=== PATIENT | female | born 1980 | race Caucasian/White ===

== ENCOUNTER → 2017-02-02 | Outpatient (CLI) | payer OTHER | LOC: FIMAGING 13:35 | PROVIDERS: ATTEND Obstetrics & Gynecology | DX: O43.122 Velamentous insertion of umbilical cord, second trimester (principal); O31.22X0 Continuing pregnancy after intrauterine death of one fetus or more, second trimester, not applicable or unspecified; Z3A.18 18 weeks gestation of pregnancy ==

== ENCOUNTER → 2017-03-02 | Outpatient (CLI) | payer OTHER | LOC: FIMAGING 14:26 | PROVIDERS: ATTEND Obstetrics & Gynecology | DX: O43.122 Velamentous insertion of umbilical cord, second trimester (principal); O09.892 Supervision of other high risk pregnancies, second trimester; Z3A.22 22 weeks gestation of pregnancy ==

== ENCOUNTER 2017-03-03 23:04 | Emergency (ER) | payer OTHER ==
[2017-03-03 23:10] VITALS: BP 114/69; PULSE 77; RESP 16; TEMP 97.9; O2SAT 97
--- NOTE | 2017-03-03 23:11 | EDPHY ---
H & P Stated Complaint: bilat ear pain HPI/ROS: HPI CHIEF COMPLAINT: Sore throat, ear pain, 22 weeks HISTORY OF PRESENT ILLNESS: This patient very pleasant 36-year-old female no significant medical history does not take any daily medications she is 22 weeks , she presents emergency room with sore throat since Monday, and now has left ear pain. She states her ears feel clogged she went to pop both of her ears and developed ear pain of her left ear. Continues to have sore throat. T- max fever at home on Monday. Since then no fever. Denies chest pain or shortness of breath. Denies abdominal pain or abdominal cramping vaginal bleeding or urinary symptoms. Past Medical History: No significant medical history Past Surgical History: Multiple orthopedic surgeries including rest, knee, ACL repair right Social History: Denies daily use of drugs alcohol tobacco products Family History: Noncontributory ROS REVIEW OF SYSTEMS: A comprehensive 10 point review of systems is otherwise negative aside from elements mentioned in the history of present illness. Exam Constitutional triage nursing summary reviewed, vital signs reviewed, awake/ alert. Eyes normal conjunctivae and sclera, EOMI, PERRLA. HENT left TM erythematous and bulging, right TM normal, posterior pharynx mild erythema no significant swelling, uvula midline, no exudate Respiratory clear to auscultation bilaterally, normal breath sounds, no respiratory distress, no wheezing. Cardiovascular rate normal, regular rhythm, no murmur, no edema, distal pulses normal. Gastrointestinal soft, non-tender, no rebound, no guarding, normal bowel sounds, no distension, no pulsatile mass. Genitourinary no CVA tenderness. Musculoskeletal no midline vertebral tenderness, full range of motion, no calf swelling, no tenderness of extremities, no meningismus, good pulses, neurovascularly intact. Skin pink, warm, & dry, no rash, skin atraumatic. Neurologic awake, alert and oriented x 3, AAOx3, moves all 4 extremities equally, motor intact, sensory intact, CN II-XII intact, normal cerebellar, normal vision, normal speech. Psychiatric normal mood/affect. Heme/Lymph/Immune no lymphadenopathy. Differential Diagnosis: Includes but is not limited to in a particular order, viral pharyngitis, strep pharyngitis, bacterial pharyngitis, otitis media, viral syndrome, sinusitis Medical Decision Making: Plan for this patient rapid strep. Left TM is erythematous with bulging. Most likely treat for acute otitis media. She is penicillin allergic. Re-evaluation: 2340: Rapid strep pending at this time. I have ordered her dose of azithromycin here in the emergency room. Z-Karson for home. Understands return emergency room if there is worsening symptoms includes high fever, worsening pain questions or concerns. Also follow up with OBGYN. Source: Patient - Personal History LMP (Females 10-55): EDC: 07/02/17 Current Tetanus/Diphtheria Vaccine: Yes - Medical/Surgical History Hx Asthma: No Hx Chronic Respiratory Disease: No Hx Diabetes: No Hx Cardiac Disease: No Hx Renal Disease: No Hx Cirrhosis: No Hx Alcoholism: No Hx HIV/AIDS: No Hx Splenectomy or Spleen Trauma: No Other PMH: PSHx: ortho hx- tailbone, r acl,4 r arm breaks, l wrist clavical, l shoulder sugery. PMHx: denies - Social History Smoking Status: Never smoked Constitutional: Initial Vital Signs Temperature (C) 36.6 C 03/03/17 23:06 Heart Rate 77 03/03/17 23:06 Respiratory Rate 16 03/03/17 23:06 Blood Pressure 114/69 03/03/17 23:06 O2 Sat (%) 97 03/03/17 23:06 O2 Delivery Mode Room Air Allergies/Adverse Reactions: penicillin G Allergy (Verified 10/14/15 08:13) Home Medications: Medication Instructions Recorded Vit27&Calcium/Iron/FA 1 tab PO DAILY 10/14/15 [] AZITHROMYCIN [Z-PACK] 250 mg PO DAILY #6 tab 03/03/17 Medical Decision Making - Data Points Laboratory Results: 03/03/17 23:25 Group A Strep Screen Pending Departure - Departure Disposition: Home, Routine, Self-Care Clinical Impression: Ear pain, left Pharyngitis Qualifiers: Pharyngitis/tonsillitis etiology: unspecified etiology Qualified Code(s): J02.9 - Acute pharyngitis, unspecified Otitis media Qualifiers: Otitis media type: unspecified Laterality: left Chronicity: unspecified Qualified Code(s): H66.92 - Otitis media, unspecified, left ear Condition: Good Instructions: Pharyngitis (ED), Otitis Media (ED), Earache (ED) Additional Instructions: 1. Please return emergency room if you have any worsening symptoms questions or concerns. This includes high fever, vomiting. Referrals: Anna Marie Canchola MD [Primary Care Provider] - As per Instructions Prescriptions: AZITHROMYCIN [Z-PACK] 250 mg PO DAILY #6 tab
[2017-03-03] MEDS ORDERED: AZITHROMYCIN 250 MG TAB PO ONE (23:39)
== END 2017-03-04 | disposition home or self-care (01) ==
DX: O99.512 Diseases of the respiratory system complicating pregnancy, second trimester (principal); J02.9 Acute pharyngitis, unspecified; H66.92 Otitis media, unspecified, left ear; O99.89 Other specified diseases and conditions complicating pregnancy, childbirth and the puerperium; Z3A.22 22 weeks gestation of pregnancy

== ENCOUNTER → 2017-03-30 | Outpatient (CLI) | payer OTHER | LOC: FIMAGING 14:20 | PROVIDERS: ATTEND Obstetrics & Gynecology | DX: O43.122 Velamentous insertion of umbilical cord, second trimester (principal); Z3A.26 26 weeks gestation of pregnancy ==

== ENCOUNTER → 2017-05-02 | Outpatient (CLI) | payer OTHER | LOC: FIMAGING 14:38 | PROVIDERS: ATTEND Obstetrics & Gynecology | DX: O09.523 Supervision of elderly multigravida, third trimester (principal); O43.123 Velamentous insertion of umbilical cord, third trimester; O34.219 Maternal care for unspecified type scar from previous cesarean delivery; Z3A.31 31 weeks gestation of pregnancy ==

== ENCOUNTER → 2017-06-05 | Outpatient (CLI) | payer OTHER | LOC: FIMAGING 14:41 | PROVIDERS: ATTEND Obstetrics & Gynecology | DX: O09.523 Supervision of elderly multigravida, third trimester (principal); O43.123 Velamentous insertion of umbilical cord, third trimester; Z3A.36 36 weeks gestation of pregnancy ==

== ENCOUNTER 2017-06-20 05:41 | Inpatient (IN) | payer OTHER ==
--- NOTE | 2017-06-13 18:44 | GHP ---
[f rep st] PREOP HISTORY AND PHYSICAL DATE OF ADMISSION: 06/20/2017 PLANNED PROCEDURE: Repeat low-transverse section. INDICATIONS: History of previous low transverse section and velamentous cord insertion with vessels inserting low into the cervix. Recommended be delivered at 38 weeks by Maternal [facility]. HISTORY OF PRESENT ILLNESS: The patient is a 37-year-old, 2, para 1-0-0 -1, who had her first baby at [facility], and had a primary low transverse section for arrest of dilation and descent. The baby was found to be macrosomic. The patient initiated care with [facility] with this , but had transferred to our office at 34 weeks gestation. This has been complicated by a vanishing twin in the first trimester, and a velamentous cord insertion with the vessels near the cervix. Recommendation has been made the patient have a repeat low transverse section, and so the patient will be scheduled for that. Recommendation also is made that this be done between 37 and 38 weeks. has been otherwise uncomplicated. PAST MEDICAL HISTORY: Unremarkable. MEDICATIONS: vitamins and DHA. PAST SURGICAL HISTORY: Primary low-transverse section, left wrist surgery, left knee surgery, right ACL meniscus repair, left shoulder ligament repair, right arm closed reduction, bilateral hernia repair. ALLERGIES: Penicillin, which causes a rash. SOCIAL HISTORY: The patient is . She lives with her . She denies tobacco, alcohol, or drug use. FAMILY MEDICAL HISTORY: Noncontributory. 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 Periods are every 28 days, lasting 5 days. She is a 2, para 1-0-0-1. In 09/2015, she had a primary low transverse section at 40 weeks and 6 days, of a 9 pounds 10 ounce male . C- section was done for arrest of descent and dilation. Current has been complicated by first-trimester bleeding, which was thought to be associated with a vanishing twin. She also has been monitored for growth during the because of a velamentous cord insertion into the inter- twin membrane located in the right lower uterine segment the of the cervix. The patient denies history of any abnormal Pap smears or sexually transmitted diseases. REVIEW OF SYSTEMS: A 10-point review of systems is negative. She does have good movement. Denies any loss of fluid or vaginal bleeding. She denies any headache or changes in vision. PHYSICAL EXAM: VITAL SIGNS: Stable. GENERAL APPEARANCE: Alert and oriented x3. PSYCH: She has appropriate affect. NECK: Mobile and supple. HEART: Rate is regular, regular. LUNGS: Clear to auscultation bilaterally. ABDOMEN: Gravid, nondistended, nontender. EXTREMITIES: Reveal no calf tenderness or edema. PELVIC: Deferred. is in the vertex presentation. LABORATORY DATA: LABS: Blood type O positive. Antibody screen negative. Rubella immune. GBS negative. HBsAg negative. HIV negative. She had an early first trimester 50 g glucose, which was 142, and a normal 3-hour glucose tolerance test in the second at 28 weeks. She just did a third 3-hour glucose tolerance test fasting, was 83; 1-hour was 166; 2-hour was 129, and 3- hour was 98. ASSESSMENT AND PLAN: A 37-year-old 2, para 1-0-0-1, who will be 38 weeks gestation, and presents for a repeat low transverse section. The patient's family status is complete, but she is not ready to have a tubal ligation, and will have an IUD placed at her visit. /[id number]/MODL MTDD
[2017-06-20] MEDS ORDERED: LR 500 ML IV ONE ×2 (05:57→07:53)
[2017-06-20] MEDS ORDERED: CITRIC ACID/SODIUM CITRATE 30 ML UDCUP PO ONE ×2 (05:57→07:53)
[2017-06-20] MEDS ORDERED: LR 1,000 ML IV SCH ×2 (06:00→08:00)
[2017-06-20 06:18] LABS: % IMMATURE GRANULYOCYTES 1.3 % (0.0-1.1); ABSOLUTE IMMATURE GRANULOCYTES 0.11 10^3/uL (0.00-0.10); ADD DIFF? NO; ADD MORPH? NO; ADD SCAN? NO; ATYPICAL LYMPHOCYTE FLAG 10 (0-99); FRAGMENT RBC FLAG 0 (0-99); HEMOGLOBIN 13.1 g/dL (12.6-16.3); LEFT SHIFT FLG 10 (0-99); LIPEMIA HEMOLYSIS FLAG 90 (0-99); MEAN CELL HEMOGLOBIN 31.2 pg (27.9-34.1); MEAN CELL HEMOGLOBIN CONCENTR. 34.5 g/dL (32.4-36.7); MEAN CELL VOLUME 90.5 fL (81.5-99.8); PLATELET CLUMPS FLAG 0 (0-99); PLATELET COUNT 194 10^3/uL (150-400)
[2017-06-20] MEDS ORDERED: OLIVE OIL 118 ML BTL ONE (06:32)
[2017-06-20] MEDS ORDERED: AMMONIA AROMATIC 1 EACH AMP IH ONE (06:32)
[2017-06-20] MEDS ORDERED: MISOPROSTOL 200 MCG TAB ONE (06:33)
[2017-06-20] MEDS ORDERED: ceFAZolin 2 GM/DEXTROSE 100 ML IV ONE (07:53)
[2017-06-20] MEDS ORDERED: CEFAZOLIN 2 GM/DEXTROSE/100 ML BAG IV ONE (07:57)
--- NOTE | 2017-06-20 07:59 | PREANESOB ---
Obstetric Pre-Anesthesia Info - General Info Proposed Procedure: repeat : 2 Para: 2 - Info Status: Full Term (38 weeks), Guevara Monitors: External FHR Pattern: Reassuring - Labor Status Cervical Dilation per last OB SVE: 0 (n/a) Section History: Repeat Indications for Current Section: Other (Specify) (velamentous cord) Labor Epidural: No Anesthesia Allergies/Adverse Reactions: Allergy/AdvReac Type Severity Reaction Status Date / Time penicillin G Allergy Verified 10/14/15 08:13 Home Medications: Medication Instructions Recorded Vit27&Calcium/Iron/FA 1 tab PO DAILY 10/14/15 [] Visit Medications: Generic Name Dose Route Start Last Admin Trade Name Freq PRN Reason Stop Dose Admin Lactated Ringer's 1,000 mls @ 125 mls/hr 06/20/17 06:00 Lr IV 12/17/17 05:59 CONT STAN Discontinued Medications Generic Name Dose Route Start Last Admin Trade Name Freq PRN Reason Stop Dose Admin Ammonia (Aromatic Spirit) Confirm 06/20/17 06:32 Ammonia Aromatic Administered 06/20/17 06:33 Dose 1 each IH .STK-MED ONE Citric Acid/Sodium Citrate 30 ml 06/20/17 05:57 06/20/17 07:21 Bicitra PO 06/20/17 05:58 30 ml ONCALL ONE Administration Ephedrine Sulfate Confirm 06/20/17 06:32 Ephedrine Sulfate Administered 06/20/17 06:33 Dose 50 mg .ROUTE .STK-MED ONE Lactated Ringer's 500 mls @ 0 mls/hr 06/20/17 05:57 Lr IV 06/20/17 05:58 ONCE ONE As Directed Misoprostol Confirm 06/20/17 06:33 Cytotec Administered 06/20/17 06:34 Dose 1,000 mcg .ROUTE .STK-MED ONE Morphine Sulfate Confirm 06/20/17 07:51 Morphine Administered 06/20/17 07:52 Dose 2 mg .ROUTE .STK-MED ONE Concord Oil Confirm 06/20/17 06:32 Sweet Oil Administered 06/20/17 06:33 Dose 118 ml .ROUTE .STK-MED ONE - Anesthesia History Response to Local Anesthetics: Not Applicable Anesthesia & Operative History: Prob w/Prior Anesthesia (n/v) Family Anesthesia History: Not Applicable - Social History Substance Use/Abuse: Denies - Focused Exam Blood Pressure: 98/56 Heart Rate: 63 Respiratory Rate: 12 Height/Weight (Nursing): Height 167.64 cm Weight 87.997 kg Respiratory: chest non-tender, lungs clear Cardiovascular: normal peripheral pulses, regular rate, rhythm Labs: 06/20/17 05:50 Patient ABO/Rh O POSITIVE 06/20/17 06:10 - Plan Anesthetic Plan: sab with morphine Consent Signed and on Chart: Yes Patient/Guardian Understands and Agrees to Plan: Yes
[2017-06-20] MEDS ORDERED: PHENYLEPHRINE HCL 100 MCG/ML SYR ONE ×2 (08:01→08:50)
[2017-06-20] MEDS ORDERED: DEXAMETHASONE 4 MG/ML VIAL ONE (08:01)
[2017-06-20] MEDS ORDERED: ONDANSETRON 4 MG/2 ML VIAL ONE (08:01)
[2017-06-20] MEDS ORDERED: fentaNYL 100 MCG/2 ML INJ ONE (08:01)
[2017-06-20] MEDS ORDERED: OXYTOCIN 100 UNITS/10 ML VIAL ONE (08:02)
[2017-06-20] MEDS ORDERED: LABETALOL HCL 5 MG/ML 20 ML MDV IVP PRN (08:41)
[2017-06-20] MEDS ORDERED: ONDANSETRON 4 MG/2 ML VIAL IVP PRN (08:41)
[2017-06-20] MEDS ORDERED: NALOXONE HCL 0.4 MG/ML INJ IVP PRN (08:41)
[2017-06-20] MEDS ORDERED: HYDROCODONE/APAP 5/325 TAB PO PRN ×2 (08:41→10:02)
[2017-06-20] MEDS ORDERED: MEPERIDINE 25 MG/ML SYR IVP PRN (08:41)
[2017-06-20] MEDS ORDERED: fentaNYL 100 MCG/2 ML INJ IVP PRN (08:41)
[2017-06-20] MEDS ORDERED: METOCLOPRAMIDE 10 MG/2 ML VIAL IVP PRN (08:41)
[2017-06-20] MEDS ORDERED: PHENYLEPHRINE HCL 100 MCG/ML SYR IVP PRN (08:41)
--- NOTE | 2017-06-20 09:38 | POSTANESTH ---
Post Anesthetic Evaluation Cardiovascular Status: Normal, Stable Respiratory Status: Normal, Stable Level of Consciousness/Mental Status: Can Participate in Eval Pain Control: Adequate, Prn Tx Ordered Nausea/Vomiting Control: Adequate, Prn Tx Ordered Complications Possibly Related to Anesthesia: None Noted
[2017-06-20] MEDS ORDERED: DOCUSATE SODIUM 100 MG CAP PO PRN (10:02)
[2017-06-20] MEDS ORDERED: SIMETHICONE 80 MG TAB CHEW PO PRN (10:02)
[2017-06-20] MEDS ORDERED: LACTULOSE 20 GM/30 ML UDCUP PO PRN (10:02)
[2017-06-20] MEDS ORDERED: MAGNESIUM HYDROXIDE 30 ML UDCUP PO PRN (10:02)
[2017-06-20] MEDS ORDERED: POLYETHYLENE GLYCOL 3350 17 GM PKT PO PRN (10:02)
[2017-06-20] MEDS ORDERED: BISACODYL 10 MG SUPP PR PRN (10:02)
--- NOTE | 2017-06-20 10:16 | OBDEL ---
Info Type: Repeat Presentation at Delivery: Vertex L&D Analgesia/Anesthesia Type: Spinal GBS+: No (was positive- given ancef due to c section ) Intrapartum Medications: Discontinued Medications Generic Name Dose Route Start Last Admin Trade Name Chandler PRN Reason Stop Dose Admin Citric Acid/Sodium Citrate 30 ml 06/20/17 05:57 06/20/17 07:21 Bicitra PO 06/20/17 05:58 30 ml ONCALL ONE Administration Cefazolin Sodium/Dextrose 100 mls @ 200 mls/hr 06/20/17 07:53 06/20/17 08:05 Ancef 2 Gm (Premix) IV 06/20/17 08:22 100 mls ONCALL ONE Administration Protocol - Hospital Course Intrapartum: 06/20/17 10:1 uncomplicated c section Operative Report - Delivery Pre-op Diagnoses: IUP 38 2/7 weeks, hx prior c section for arrest of descent and dilation, velamentous cord (mfm rec delivery 38-39 weeks) Post-op Diagnoses: same History of Prior Section: Yes Number of Prior Sections: 1 Nulliparous Prior to Delivery: No Indications for Prior Section: Arrest of Descent, Arrest of Dilation ( baby was 9#10 oz) Indications for Current Section: Other (Specify) (velamentous cord) Surgeon: Emma Meade Manager Code: Ro Yarbrough Anesthesiologist: Basilio Polanco Findings: velementous cord insertion with essels traversing along lateral edge of placenta EBL: 800 Data Guevara Delivery Date: 06/20/17 Delivery Time: 08:45 CINDY: 07/02/17 Gestational Age: 38 week(s) and 2 day(s) Sex of : Female Score (1 Min): 8 Score (5 Min): 9 ICD10 Worksheet Patient Problems: Problems Problem Status Onset Elective induction of labor planned Acute
[2017-06-20] MEDS ORDERED: OXYTOCIN/RINGERS LACTATE 1,000 ML IV SCH (10:30)
[2017-06-20] MEDS ORDERED: KETOROLAC 30 MG/1 ML SDV ONE (10:58)
[2017-06-20] MEDS: KETOROLAC 30 MG/1 ML SDV IVP SCH ×3 (11:01→22:19)
--- NOTE | 2017-06-20 11:12 | GOP ---
[f rep st] OPERATIVE REPORT DATE OF OPERATION: 06/20/2017 SURGEON: Emma Meade DO DUCT LAYER: PAVAN Avila, the certified nurse skein yarn drier. PREOPERATIVE DIAGNOSIS: 1. Intrauterine at 38-2/7 weeks' gestation. 2. History of previous section for 9 pounds, 10 ounces baby, arrest of descent and dilatio n. 3. Velamentous cord insertion, recommended delivery between 38 and 39 weeks per MFM. POSTOPERATIVE DIAGNOSIS: 1. Intrauterine at 38-2/7 weeks' gestation. 2. History of previous section for 9 pounds, 10 ounces baby, arrest of descent and dilatio n. 3. Velamentous cord insertion, recommended delivery between 38 and 39 weeks per MFM. 4. Straight occiput posterior. PROCEDURE PERFORMED: Repeat low transverse section with excision of scar. FINDINGS: 1. Viable female infant in the cephalic occiput posterior presentation delivered at 8:45 a.m. Apga rs were 8 and 9. 2. Intact placenta with 3-vessel cord with velamentous cord insertion and cord running around the p eriphery of the placenta. Normal ovaries, uterus, and tubes. ESTIMATED BLOOD LOSS: 800 cc. INDICATIONS: The patient is a 37-year-old, 2, para 1-0-0-1, who is 38-2/7 weeks' gestation. She initially had care starting in the first trimester with [facility], but t ransferred to us at 34 weeks' gestation. She does have a history of a previous low transverse tony ravin section for arrest of descent and dilation for 9 pounds, 10 ounces baby. She had hoped to have vaginal after section, but was diagnosed with a velamentous cord insertion with the v essels near the cervix. The recommendation was that the patient have a repeat low transverse tariq an section. Risks and benefits were reviewed with the patient, and the patient was properly consent ed. DESCRIPTION OF PROCEDURE: The patient was taken to the operating room with intravenous fluids in pl oralia. She was given 2 g of Ancef intravenously. She was then seated on the operating room table whe re spinal anesthesia was obtained. She was then repositioned into the dorsal supine position with a leftward tilt and prepped and draped in the normal sterile fashion. A Matthews catheter was placed pr ior to prepping and draping, and Venodynes were placed on her lower extremities. Anesthesia was ass essed and found to be adequate. A Pfannenstiel skin incision was then made 2 fingerbreadths above t he pubic symphysis. The incision was then carried through the underlying layer of fascia with the B ovie. The fascia was then nicked in the midline. The fascial incision was extended laterally. The superior aspect of the fascial incision was grasped with a Kaleigh, tented up, and the underlying re ctus muscle dissected off bluntly with the Bovie. Attention was then turned to the inferior aspect of the fascial incision which, in a similar fashion, was grasped with Kaleigh, tented up, and the und erlying rectus muscle dissected off bluntly with the Bovie. The rectus muscle was then in the midline. The peritoneum was identified, tented up, and entered sharply with Metzenbaum scissor s. The incision was extended superiorly and inferiorly with excellent visualization of the bladder. The bladder blade was then inserted. The vesicouterine peritoneum was identified, tented up, and entered sharply with the Metzenbaum scissors. The incision was extended laterally, and the bladder flap was created digitally. The bladder blade was then reinserted. The uterus was then incised in a low transverse fashion with the scalpel. The uterine incision was digitally extended laterally. Clear fluid was noted. The infant's head was noted to be floating within the pelvis. With fundal p ressure, the 's head was delivered through the incision. It was noted to be direct OP. The r emainder of the viable female was then delivered without difficulty. Cord was clamped x2 and cut after 30 seconds of delayed cord clamping, and the was handed off to awaiting n lata practitioner. Cord blood for storage was collected. Then cord blood for the hospital was heather ected. Intact placenta with 3-vessel cord was delivered without difficulty. The uterus was then ex teriorized and cleared of all clots and debris, and the bladder blade was then reinserted. Pitocin was then started. Uterine incision was then closed with 0 Vicryl in a running locked fashion. A se cond 0 Vicryl stitch was used to imbricate the uterine incision. Hemostasis was ensured. Ovaries, uterus, and tubes were unremarkable. The gutters were cleared of all clots and debris. The uterus was then returned to the patient's abdomen. The bladder blade was then reinserted. The hysterotomy remained hemostatic, and the gutters were dry. The peritoneum was then grasped with hemostats and closed with 3-0 Vicryl in a running fashion. Rectus muscle was reapproximated with 2-0 Vicryl in a running fashion. Fascia was closed with 0 Vicryl in a running fashion. Subcutaneous tissue was hem ostatic, and Yajaira fascia was reapproximated with 2-0 Vicryl in a running fashion. Subcuticular ti ssue was reapproximated with 3-0 Vicryl in a running fashion. The skin was then closed with gigi . Sponge, lap, and needle count were correct x2. The patient was transported to recovery room in s table condition. /[id number]/MODL
[2017-06-20] MEDS: SENNOSIDES/DOCUSATE SODIUM TAB PO SCH (22:21)
--- NOTE | 2017-06-20 22:25 | OBPP ---
Progress Note Assessment/Plan: Assessment: pod# 0 s/p RLTCS breast feeding Plan: routine post care and post operative care 06/20/17 22:23 Subjective/ Course: 06/20/17 22:24 denies headache and changes in vision. recovery much easier than after last c section. pain is well controlled. tolerating diet. dangled feet this evening. passing gas. working on breast feeding Objective: 06/20/17 05:50 Patient ABO/Rh O POSITIVE 06/20/17 06:10 Temp Pulse Resp BP Pulse Ox 36.4 C 75 16 95/56 L 94 06/20/17 20:20 06/20/17 21:34 06/20/17 20:20 06/20/17 20:20 06/20/17 21:34 Physical Exam - Physical Exam Neck: non-tender, full range of motion Respiratory: chest non-tender, lungs clear, normal breath sounds Cardiac/Chest: normal peripheral pulses, regular rate, rhythm Abdomen: normal bowel sounds, non-tender Extremities: normal range of motion, non-tender, normal inspection, normal capillary refill Skin: normal color, warm/dry, other (incision clean dry and intact) Neuro/Psych: no motor/sensory deficits, alert, normal mood/affect, oriented x 3
[2017-06-21] MEDS: KETOROLAC 30 MG/1 ML SDV IVP SCH (05:37)
--- NOTE | 2017-06-21 08:35 | OBPP ---
Progress Note Assessment/Plan: Assessment: Post Op Day # 1, s/p repeat c/s mild anemia Plan: routine post op care encourage ambulation cont advised increasing water intake plan to d/c home in 48 hours 06/21/17 08:32 Subjective/ Course: 06/20/17 22:24 pt doing well, she has no complaints denies any pain she is reports min bleeding reports +flatus 06/21/17 08:35 Objective: 06/21/17 03:08 Patient ABO/Rh O POSITIVE 06/20/17 06:10 Temp Pulse Resp BP Pulse Ox 36.5 C 60 16 88/49 L 94 06/21/17 04:40 06/21/17 06:32 06/21/17 04:40 06/21/17 04:40 06/21/17 06:32 Exam: VSS CV: RRR, no murmur Resp: CTA-B Abd: soft, nontender, +BSx4, incision dressing C/D/I uterus: firm @ U-1 lochia: min rubra extremities: trace edema, negative nisreen's sign Uterine Position/Fundal Height: Umbilicus -1, Midline Uterine Tone: Firm
[2017-06-21] MEDS: SENNOSIDES/DOCUSATE SODIUM TAB PO SCH ×2 (08:59→20:03)
[2017-06-21] MEDS: IBUPROFEN 600 MG TAB PO PRN ×3 (10:23→22:17)
[2017-06-21] MEDS: OXYCODONE/APAP 5/325 TAB PO PRN ×3 (11:37→20:02)
[2017-06-22] MEDS: IBUPROFEN 600 MG TAB PO PRN ×3 (04:46→16:34)
[2017-06-22] MEDS: SENNOSIDES/DOCUSATE SODIUM TAB PO SCH (08:32)
[2017-06-22] MEDS: HYDROCORTISONE 0.5% CREAM TP SCH ×2 (12:06→18:11)
--- NOTE | 2017-06-22 16:26 | OBPP ---
Progress Note Assessment/Plan: Assessment: 37 y/o POD #2 s/p LTCS secondary to velamentous cord insertion Plan: doing well, continue Ibuprofen prn and routine POC. D/c home tomorrow. 06/22/17 16:23 Subjective/ Course: 06/20/17 22:24 Pt is doing well. She has good pain control on only Ibuprofen. She is ambulating, voiding without difficulty, has min lochia and + BM today. Breast feeding is going well and they wish to d/c home tomorrow. 06/21/17 08:35 06/22/17 16:21 Objective: 06/21/17 03:08 Patient ABO/Rh O POSITIVE 06/20/17 06:10 Temp Pulse Resp BP Pulse Ox 36.6 C 75 14 105/63 93 06/22/17 08:00 06/22/17 08:00 06/22/17 08:00 06/22/17 08:00 06/22/17 08:00 Uterine Position/Fundal Height: Umbilicus -2 Uterine Tone: Firm Physical Exam - Physical Exam General Appearance: WD/WN, alert, no apparent distress Neck: non-tender, full range of motion, supple Respiratory: chest non-tender, lungs clear, normal breath sounds Cardiac/Chest: regular rate, rhythm Abdomen: normal bowel sounds, incision (c/d/i) Extremities: swelling (no), Bahman's sign (neg)
[2017-06-23] MEDS: IBUPROFEN 600 MG TAB PO PRN ×2 (00:02→05:46)
[2017-06-23] MEDS: SENNOSIDES/DOCUSATE SODIUM TAB PO SCH ×2 (00:03→11:37)
[2017-06-23] MEDS: HYDROCORTISONE 0.5% CREAM TP SCH ×2 (00:03→05:47)
[2017-06-23 09:48] VITALS: BP 122/80; PULSE 72; RESP 14; TEMP 97.1; O2SAT 98
--- NOTE | 2017-06-23 09:49 | OBPP ---
Progress Note Assessment/Plan: Assessment: pod# 3 s/p RLTCS breast feeding Plan: routine post care and post operative care routine discharge instructions 06/23/17 09:47 Subjective/ Course: 06/20/17 22:24 Pt is doing well. She has good pain control on only Ibuprofen. She is ambulating, voiding without difficulty, has min lochia and + BM today. Breast feeding is going well and they wish to d/c home tomorrow. 06/21/17 08:35 06/22/17 16:21 06/23/17 09:47 patient is doing great. pain is well controlled with just ibuprofen. breast feeding is going well. passing gas and had a bowel movement. voiding without difficulty. denies headache and changes in vision. normal lochia. ambulating. Objective: 06/21/17 03:08 Patient ABO/Rh O POSITIVE 06/20/17 06:10 Temp Pulse Resp BP Pulse Ox 35.9 C L 66 16 112/69 92 06/22/17 19:32 06/22/17 19:32 06/22/17 19:32 06/22/17 19:32 06/22/17 19:32 Physical Exam - Physical Exam Neck: non-tender, full range of motion, supple Respiratory: chest non-tender, lungs clear, normal breath sounds Cardiac/Chest: normal peripheral pulses, regular rate, rhythm Abdomen: normal bowel sounds, non-tender Extremities: normal range of motion, non-tender, normal inspection, normal capillary refill Skin: normal color, warm/dry, other (incision clean dry and intact) Neuro/Psych: no motor/sensory deficits, alert, normal mood/affect, oriented x 3
--- NOTE | 2017-06-23 09:58 | OBGCSDC ---
General Delivery Information - General Info : 2 Para: 2 Type: Repeat L&D Analgesia/Anesthesia Type: Spinal Admission Date: 06/20/17 Labs: Patient ABO/Rh O POSITIVE 06/20/17 06:10 Hct 33.8 % (38.0-47.0) L 06/21/17 03:08 - Hospital Course Antepartum: 06/23/17 09:[address] [facility]. PLTCS for arrest of descent for macrosomic infant. initiated care with [facility] with G2. transferred back to [facility] at 36 weeks. had hoped to but had velementous cord insertion so [facility] recommended C section at 38 weeks. negative genetic testing. Intrapartum: 06/20/17 10:1 uncomplicated c section : 06/20/17 22:24 Pt is doing well. She has good pain control on only Ibuprofen. She is ambulating, voiding without difficulty, has min lochia and + BM today. Breast feeding is going well and they wish to d/c home tomorrow. 06/21/17 08:35 06/22/17 16:21 06/23/17 09:47 patient is doing great. pain is well controlled with just ibuprofen. breast feeding is going well. passing gas and had a bowel movement. voiding without difficulty. denies headache and changes in vision. normal lochia. ambulating. - Delivery Providers Surgeon: Emma Meade Computer Lab Assistant: Ro Yarbrough Anesthesiologist: Basilio Polanco - Delivery Number of Prior Sections: 1 Indications for Current Section: Other (Specify) (velamentous cord) Surgical Procedures: Scheduled, Low Transverse EBL: 800 [place] Data Guevara Delivery Date: 06/20/17 Delivery Time: 08:45 CINDY: 07/02/17 Gestational Age: 38 week(s) and 5 day(s) Sex of Infant: Female Score (1 Min): 8 Score (5 Min): 9 Discharge Information - Discharge Information Prescriptions: oxyCODONE/APAP 5/325 [Percocet 5/325 (*)] 1 - 2 tab PO Q4HRS PRN #7 tab PRN Reason: Pain, Severe Able To Take Po Condition: Good Instruction/Follow Up: Two Weeks, Four Weeks, Six Weeks
== END 2017-06-23 11:30 | disposition home or self-care (01) | DRG 766 ==
LOC: FLD 05:41 → FOB 11:55
PROVIDERS: ADMIT Obstetrics & Gynecology; ATTEND Obstetrics & Gynecology
PROC: 10D00Z1 Extraction of Products of Conception, Low, Open Approach (ICD-10-PCS; principal; 2017-06-20)
DX: O34.211 Maternal care for low transverse scar from previous cesarean delivery (principal); O43.123 Velamentous insertion of umbilical cord, third trimester; O32.8XX0 Maternal care for other malpresentation of fetus, not applicable or unspecified; Z37.0 Single live birth; Z3A.38 38 weeks gestation of pregnancy
CPT/HCPCS: J0690; J1100; J1885; J2370; J2405; J2590; J3010